=== PATIENT | male | born 2000 | race Caucasian/White ===

== ENCOUNTER 2021-02-26 23:42 | Emergency (ER) | payer SELFPAY ==
[~2021-02-26] VITALS: Ht 175.3 cm; Wt 68.0 kg
[2021-02-26 23:55] VITALS: BP 135/78
--- NOTE | 2021-02-27 00:05 | PHYS DOC ---
Adult General Chief Complaint Chief Complaint: ABDOMINAL PAIN HPI HPI Patient is a otherwise healthy 21-year-old male who presents with a chief complaint of right flank/right lower quadrant pain that started several hours ago at home acutely, 7 out of 10, sharp in nature with associated nausea and vomiting. States he had not had anything like this before. Denies recent trauma, travels, illnesses, fevers, chest pain, shortness of breath. Review of Systems Review of Systems Review of systems otherwise unremarkable except noted in HPI Physical Exam Physical Exam Constitutional: Well developed, well nourished, no acute distress, non-toxic appearance. [] HENT: Normocephalic, atraumatic, bilateral external ears normal, oropharynx moist, no oral exudates, nose normal. [] Eyes: conjunctiva normal, no discharge. [] Neck: Normal range of motion, no tenderness, supple, no stridor. [] Cardiovascular:Heart rate regular rhythm, no murmur [] Lungs & Thorax: Bilateral breath sounds clear to auscultation [] Abdomen: soft, no tenderness, no masses, no pulsatile masses. [] Skin: Warm, dry, no erythema, no rash. [] Back: no CVA tenderness. [] Extremities: No tenderness, ROM intact, no edema. [] Neurologic: Alert and oriented X 3, normal motor function, normal sensory fun ction, no focal deficits noted. [] Psychologic: Affect normal, judgement normal, mood normal. [] EKG EKG [] Radiology/Procedures Radiology/Procedures [] CT abdomen and pelvis without contrast PQRS statement: CT scans at this facility use dose reduction including either automated exposure control, iterative reconstructions, and /or weight based radiation dosing via mA and kV modification when appropriate to reduce radiation dose to as low as reasonably achievable. HISTORY: Right flank pain. Right lower quadrant abdominal pain. Abdomen findings: Lung bases and bones are unremarkable. 3 cm splenic cyst with thin incomplete peripheral calcification. Pancreas, adrenal glands, gallbladder unremarkable. Focal hypoattenuating fatty infiltration left hepatic lobe adjacent to falciform ligament. There is mild right renal hydronephrosis renal pelvis diameter 1.5 cm with mild dilation and edema of the ureter being up to a 2 mm distal ureteral calculus image 145 just above the bladder. No abdominal fluid. The appendix is negative. No obstruction or inflammation of GI tract. Pelvis findings: No bladder calculi. 2 mm distal right ureteral calculus. Prostate, rectum and bones are unremarkable. IMPRESSION: 1. Mild right renal hydronephrosis associated with a 2 mm distal right ureteral obstructing calculus as described above. 2. Appendix is negative. Electronically signed by: Salty Rivera MD (02/27/2021 12:43 AM) [facility] Heart Score C/O Chest Pain: No Risk Factors: Risk Factors: DM, Current or recent (<one month) smoker, HTN, HLP, family history of CAD, obesity. Risk Scores: Risk Factors: DM, Current or recent (<one month) smoker, HTN, HLP, family history of CAD, obesity. Course & Med Decision Making Course & Med Decision Making Patient is a 21-year-old male presents with right flank/right lower quadrant pain which started a couple hours before coming in associated with nausea and vomiting [] Dragon Disclaimer Dragon Disclaimer This electronic medical record was generated, in whole or in part, using a voice recognition dictation system. Departure Departure: Impression: Primary Impression: Abdominal pain Additional Impression: Ureterolithiasis Disposition: 01 HOME / SELF CARE / HOMELESS Condition: GOOD Referrals: PCP,NO (PCP) JESUS ORDONEZ MD Patient Instructions: Diet for Kidney Stones, Kidney Stones Additional Instructions: Thank you for coming into the emergency department tonight and allowing us to take care of you. Please read the attached information carefully to go back over things we discussed. Please begin a ibuprofen regimen at 600 mg every 6 hours and use your prescription pain medicine for breakthrough. Please be sure to drink plenty of fluids. Please follow-up with your primary care physician in the morning to update on your ED visit. Please come back with new or concerning symptoms as we discussed. Problem Qualifiers BRIAN CASTANEDA MD Feb 27, 2021 00:05
[2021-02-27] MEDS ORDERED: METOCLOPRAMIDE HCL 10 MG/2 ML VIAL. IVP ONE (00:30)
--- NOTE | 2021-02-27 00:46 | RAD ---
CT abdomen and pelvis without contrast PQRS statement: CT scans at this facility use dose reduction including either automated exposure cont rol, iterative reconstructions, and /or weight based radiation dosing via mA and kV modification when appropriate to reduce radiation dose to as low as reasonably achievable. HISTORY: Right flank pain. Right lower quadrant abdominal pain. Abdomen findings: Lung bases and bones are unremarkable. 3 cm splenic cyst with thin incomplete perip heral calcification. Pancreas, adrenal glands, gallbladder unremarkable. Focal hypoattenuating fatty infiltration left hepatic lobe adjacent to falciform ligament. There is mild right renal hydronephros is renal pelvis diameter 1.5 cm with mild dilation and edema of the ureter being up to a 2 mm distal ureteral calculus image 145 just above the bladder. No abdominal fluid. The appendix is negative. No obstruction or inflammation of GI tract. Pelvis findings: No bladder calculi. 2 mm distal right ureteral calculus. Prostate, rectum and bones are unremarkable. IMPRESSION: 1. Mild right renal hydronephrosis associated with a 2 mm distal right ureteral obstructing calculus as described above. 2. Appendix is negative. Electronically signed by: Salty Rivera MD (02/27/2021 12:43 AM) [facility]
[2021-02-27] MEDS ORDERED: oxyCODONE/APAP 5/325 1 TAB TABLET PO ONE (01:30)
[2021-02-27] MEDS ORDERED: KETOROLAC 30 MG/ML VIAL. IM ONE (01:30)
[2021-02-27] MEDS ORDERED: ACETAMINOPHEN/CODEINE 300/30MG 4TABLET STARTPACK. PO ONE (01:30)
[2021-02-27] MEDS ORDERED: ONDANSETRON 4MG ODT 4TABLET STARTPACK. PO ONE (01:30)
[2021-02-27 01:38] LABS: BACTERIA,URINE FEW /HPF (0-FEW); BILIRUBIN,URINE SMALL (NEG); CLARITY,URINE CLEAR; COLOR,URINE YELLOW; GLUCOSE,URINE NEG (NEG); NITRITE,URINE NEG (NEG); SQUAMOUS EPITHELIAL CELL,UR FEW /LPF; UROBILINOGEN,URINE 0.2 mg/dL (0.2 mg/dL)
== END 2021-02-27 01:12 | disposition home or self-care (01) ==
LOC: ER 23:42
DX: N13.2 Hydronephrosis with renal and ureteral calculous obstruction (principal)
CPT/HCPCS: 74176; 81001; 96372; 96374; 99284; J1885; J2765; J3010; Q0162